=== PATIENT | female | born 1975 | race Caucasian/White ===

== ENCOUNTER → 2017-12-18 16:56 | Outpatient (CLI) | payer OTHER, SELFPAY ==
[2017-12-18 19:59] LABS: Amphetamine/Metha Screen,Urine Negative ng/mL (<1000); Barbiturates Screen,Urine Negative ng/mL (<200); Benzodiazepines Screen,Urine Negative ng/mL (200); Cannabinoid Screen,Urine Negative ng/mL (<50); Cocaine Screen,Urine Negative ng/g (<300); Methadone Screen,Urine Negative ng/mL (<300); Opiate Screen,Urine Negative ng/mL (<300); Phencyclidine Screen,Urine Negative ng/mL (<25)
== END ==
PROVIDERS: Visit Provider Nurse Practitioner Family
DX: Z79.899 Other long term (current) drug therapy (principal); R68.89 Other general symptoms and signs
CPT/HCPCS: 80305

== ENCOUNTER → 2017-12-20 08:03 | Outpatient (CLI) | payer OTHER, SELFPAY ==
[2017-12-20 08:37] LABS: Basophils # 0.1 K/mm3 (0-0.2); Basophils % 0.7 % (0.1-2.0); Eosinophils # 0.3 K/mm3 (0.0-0.4); Eosinophils % 3.6 % (0.1-12.0); Hematocrit 45.6 % (37.0-47.0); Hemoglobin 14.8 g/dL (12.2-16.2); Lymphocytes # 1.4 K/mm3 (0.7-4.5); Lymphocytes % 18.2 K/mm3 (10-50); Mean Corpuscular HGB Conc 32.4 g/dL (31.8-35.4); Mean Corpuscular Hemoglobin 29.7 pg (27.0-31.2); Mean Corpuscular Volume 91.8 fl (81-99); Mean Platelet Volume 8.1 fl (7.4-10.4); Monocytes # 0.4 K/mm3 (0.1-1.0); Monocytes % 5.5 % (1.7-9.3); Neutrophils # 5.6 K/mm3 (1.8-7.8); Neutrophils % 72.1 % (37.0-80.0); Platelet Count 275 K/mm3 (142-424); Red Blood Count 4.96 M/mm3 (4.20-5.40); Red Cell Distribution Width 12.9 % (11.5-17.5); White Blood Count 7.8 K/mm3 (4.8-10.8)
[2017-12-20 09:00] LABS: Alanine Aminotransferase 21 U/L (12-78); Albumin/Globulin Ratio 1.1 (1.1-1.8); Alkaline Phosphatase 75 U/L (46-116); Anion Gap 9.5 mEq/L (5-15); Aspartate Amino Transferase 18 U/L (15-37); Bilirubin,Total 0.4 mg/dL (0.2-1.0); Blood Urea Nitrogen 9 mg/dL (7-18); Calcium 8.8 mg/dL (8.5-10.1); Carbon Dioxide 30 mmol/L (21.0-32.0); Chloride 105 mmol/L (98-107); Chol/HDL Ratio 3.6 (1-3.5); Cholesterol 166 mg/dL (140-200); Creatinine,Serum 0.75 mg/dL (0.55-1.02); Estimated Glomerular Filt Rate 84 ml/min (>60); GFR (African American) 102 ML/MIN (>60); Globulin 3.5 gm/dl (1.3-3.2); Glucose 97 mg/dL (74-106); HDL Cholesterol 46 mg/dL (29-89); LDL Cholesterol 98 mg/dL (0-130); Potassium 4.5 mmoL/L (3.5-5.1); Sodium 140 mmol/L (136-145); Thyroid Stimulating Hormone 1.89 uIU/ml (0.358-3.740); Total Protein,Serum 7.5 gm/dL (6.4-8.2); Triglycerides 110 mg/dL (30-200); VLDL Cholesterol 22 mg/dL (0-40)
[2017-12-21 18:39] LABS: Vitamin D 25 Hydroxy 17.3 ng/mL (30.0-100.0)
== END ==
PROVIDERS: Nurse Practitioner Family; Visit Provider Emergency Medicine
DX: R68.89 Other general symptoms and signs (principal); E66.9 Obesity, unspecified; Z79.899 Other long term (current) drug therapy
CPT/HCPCS: 36415; 80053; 80061; 82652; 84436; 84443; 85025

== ENCOUNTER → 2018-02-24 16:55 | Outpatient (CLI) | payer OTHER, SELFPAY ==
--- NOTE | 2018-02-24 17:01 | MM_ITS ---
MM Dig screening mamm BI w/CAD CAD Screening ORDERING PHYSICIAN : Yoko Cheng MD PATIENT AGE: 43 years GENDER: Female COMPARISON: Previous mammograms: January 10, 2017, November 2015, left mammogram and ultrasound July 2017 INDICATION: Routine screening. No hormones. No new complaints Maternal grandmother with breast cancer TECHNIQUE: Standard CC and MLO images were obtained. Additional axillary cc views & right nipple profile cc view R2 CAD reviewed. FINDINGS: Moderately dense breast bilaterally again seen. Decreased. Sensitivity mammography in breast of this character Fibroglandular tissue most evident retroareolar region and towards upper outer quadrant However overall architecture is stable since prior studies with no dominant mass nor suspicious calcifications. RIGHT BREAST:No significant change follow-up one year. LEFT BREAST:No significant new findings. Denser areas tissue retroareolar region appear stable Small nodular densities from likely small intramammary nodes at the deep axillary left breast similar to previous studies and can be followed IMPRESSION: No new findings of significant concern Follow-up one year recommended and encouraged Moderately dense breast pattern does somewhat decrease sensitivity of mammography BI-RADS Category: 2 Benign Finding(s) RECOMMENDED FOLLOW-UP: 1YR - 1 YEAR FOLLOW-UP (A letter has been sent to the patient regarding results of the study.)
== END ==
PROVIDERS: Family Provider Family Medicine; PCP Nurse Practitioner Family; Referring Provider Nurse Practitioner Family; Visit Provider Obstetrics & Gynecology
DX: Z12.31 Encounter for screening mammogram for malignant neoplasm of breast (principal)
CPT/HCPCS: 77067

== ENCOUNTER → 2018-06-07 12:34 | Outpatient (CLI) | payer OTHER, SELFPAY ==
[2018-06-07 14:32] LABS: Basophils # 0.1 K/mm3 (0-0.2); Basophils % 0.6 % (0.1-2.0); Eosinophils # 0.1 K/mm3 (0.0-0.4); Eosinophils % 1.1 % (0.1-12.0); Hematocrit 43.8 % (37.0-47.0); Hemoglobin 14.3 g/dL (12.2-16.2); Lymphocytes # 1.2 K/mm3 (0.7-4.5); Lymphocytes % 15.3 K/mm3 (10-50); Mean Corpuscular HGB Conc 32.7 g/dL (31.8-35.4); Mean Corpuscular Hemoglobin 29.7 pg (27.0-31.2); Mean Corpuscular Volume 90.7 fl (81-99); Mean Platelet Volume 8.5 fl (7.4-10.4); Monocytes # 0.3 K/mm3 (0.1-1.0); Neutrophils # 6.3 K/mm3 (1.8-7.8); Platelet Count 268 K/mm3 (142-424); Red Blood Count 4.83 M/mm3 (4.20-5.40); Red Cell Distribution Width 13.5 % (11.5-17.5); White Blood Count 7.9 K/mm3 (4.8-10.8)
[2018-06-07 15:26] LABS: Alanine Aminotransferase 22 U/L (12-78); Albumin Level 4.2 gm/dL (3.4-5.0); Albumin/Globulin Ratio 1.4 (1.1-1.8); Alkaline Phosphatase 82 U/L (46-116); Anion Gap 14.3 mEq/L (5-15); Aspartate Amino Transferase 16 U/L (15-37); Bilirubin,Total 0.6 mg/dL (0.2-1.0); Blood Urea Nitrogen 14 mg/dL (7-18); Calcium 8.7 mg/dL (8.5-10.1); Carbon Dioxide 25 mmol/L (21.0-32.0); Chloride 109 mmol/L (98-107); Creatinine,Serum 0.72 mg/dL (0.55-1.02); Estimated Glomerular Filt Rate 88 ml/min (>60); GFR (African American) 106 ML/MIN (>60); Glucose 88 mg/dL (74-106); Phosphorous 3.4 mg/dL (2.4-4.9); Potassium 4.3 mmoL/L (3.5-5.1); Sodium 144 mmol/L (136-145); Thyroid Stimulating Hormone 1.73 uIU/ml (0.358-3.740); Total Protein,Serum 7.2 gm/dL (6.4-8.2)
[2018-06-08 15:41] LABS: Magnesium 1.9 mg/dL (1.4-2.2)
[2018-06-09 05:26] LABS: Vitamin B12 405 pg/mL (232-1245)
[2018-06-11 07:46] LABS: Vitamin D 25 Hydroxy 26.5 ng/mL (30.0-100.0)
== END ==
PROVIDERS: PCP Family Medicine; Visit Provider Family Medicine
DX: R53.83 Other fatigue (principal); R20.0 Anesthesia of skin
CPT/HCPCS: 36415; 80053; 82607; 82652; 83735; 84100; 84443; 85025

== ENCOUNTER → 2018-09-11 15:38 | Outpatient (CLI) | payer OTHER, SELFPAY ==
[2018-09-13 14:01] LABS: Vitamin D 25 Hydroxy 20.2 ng/mL (30.0-100.0)
== END ==
PROVIDERS: Visit Provider Family Medicine
DX: E55.9 Vitamin D deficiency, unspecified (principal)
CPT/HCPCS: 36415; 82652

== ENCOUNTER → 2018-11-18 11:00 | Outpatient (CLI) | payer OTHER, SELFPAY | PROVIDERS: Visit Provider Nurse Practitioner Obstetrics & Gynecology | DX: R39.89 Other symptoms and signs involving the genitourinary system (principal) | CPT/HCPCS: 87086; 87088; 87186 ==

== ENCOUNTER → 2018-11-28 07:39 | Outpatient (CLI) | payer OTHER, SELFPAY | PROVIDERS: Visit Provider Family Medicine | DX: E55.9 Vitamin D deficiency, unspecified (principal) | CPT/HCPCS: 36415; 82652 ==

== ENCOUNTER → 2019-01-01 08:08 | Outpatient (POV) | payer OTHER, SELFPAY | PROVIDERS: Visit Provider Dentist | DX: Z00.00 Encounter for general adult medical examination without abnormal findings (principal) ==

== ENCOUNTER → 2019-03-30 17:01 | Outpatient (CLI) | payer OTHER, SELFPAY ==
--- NOTE | 2019-03-30 17:03 | MM_ITS ---
MM Dig screening mamm BI w/CAD CAD Screening COMPARISON: Digital mammograms with CAD 02/24/2018 and 01/18/2017 INDICATION: There is a history of breast cancer patient maternal grandmother diagnosed after menopause TECHNIQUE: Standard CC and MLO images were obtained. R2 CAD reviewed. FINDINGS: Moderate diffuse somewhat heterogenic fibroglandular densities are seen in both breast most prominent upper outer quadrants. There are couple benign-appearing calcination is in each breast. There are stable small nodular density axillary tail left breast likely a low-lying node. There is no suspicious lesion and there are no suspicious microcalcifications. IMPRESSION: Stable exam with no suspicious lesion seen BI-RADS Category: 2 Benign Finding(s) RECOMMENDED FOLLOW-UP: 1YR - 1 YEAR FOLLOW-UP (A letter has been sent to the patient regarding results of the study.)
== END ==
PROVIDERS: PCP Family Medicine; Visit Provider Nurse Practitioner Obstetrics & Gynecology
DX: Z12.31 Encounter for screening mammogram for malignant neoplasm of breast (principal)
CPT/HCPCS: 77067

== ENCOUNTER → 2019-04-30 07:58 | Outpatient (POV) | payer OTHER, SELFPAY | PROVIDERS: Visit Provider Dentist | DX: Z00.00 Encounter for general adult medical examination without abnormal findings (principal) ==

== ENCOUNTER → 2019-07-02 08:09 | Outpatient (POV) | payer OTHER, SELFPAY | PROVIDERS: Visit Provider Dentist | DX: Z00.00 Encounter for general adult medical examination without abnormal findings (principal) ==

== ENCOUNTER → 2019-08-06 08:06 | Outpatient (POV) | payer OTHER, SELFPAY | PROVIDERS: Visit Provider Dentist | DX: Z00.00 Encounter for general adult medical examination without abnormal findings (principal) ==

== ENCOUNTER → 2020-01-18 10:48 | Outpatient (POV) | payer OTHER, SELFPAY | PROVIDERS: PCP Family Medicine; Visit Provider Specialist | DX: R55 Syncope and collapse (principal) | CPT/HCPCS: 95816 ==

== ENCOUNTER → 2020-01-21 12:03 | Outpatient (CLI) | payer OTHER, SELFPAY ==
[2020-01-21 14:04] LABS: Magnesium 2.1 mg/dl (1.6-2.3)
[2020-01-21 14:34] LABS: Thyroid Stimulating Hormone 1.02 uIU/mL (0.465-4.68)
[2020-01-22 09:25] LABS: Vitamin D 25 Hydroxy 21.3 ng/mL (30.0-100.0)
== END ==
PROVIDERS: Visit Provider Family Medicine
DX: R55 Syncope and collapse (principal); E55.9 Vitamin D deficiency, unspecified
CPT/HCPCS: 36415; 82652; 83735; 84100; 84443

== ENCOUNTER → 2020-02-10 07:32 | Outpatient (CLI) | payer OTHER, SELFPAY ==
[2020-02-10 08:15] LABS: Chloride 104 mmol/L (98-107); Potassium 4.4 mmoL/L (3.5-5.1); Sodium 134 mmol/L (136-145)
[2020-02-10 08:18] LABS: Anion Gap 8.4 mEq/L (5-15); Blood Urea Nitrogen 11 mg/dl (7-17); Calcium 8.7 mg/dl (8.4-10.2); Carbon Dioxide 26 mmol/L (22.0-30.0); Chol/HDL Ratio 2.4 (1-3.5); Cholesterol 134 mg/dl (140-200); Estimated Glomerular Filt Rate 90 ml/min (>60); GFR (African American) 109 ML/MIN (>60); Glucose 94 mg/dl (74-100); HDL Cholesterol 57 mg/dl (40-60); Triglycerides 64 mg/dl (30-150); VLDL Cholesterol 13 mg/dL (0-40)
[2020-02-10 08:29] LABS: Direct LDL Cholesterol 86.13 mg/dL (100-129)
[2020-02-10 10:15] LABS: Hemoglobin A1C 4.7 % (4.0-6.0)
[2020-02-11 11:39] LABS: Vitamin B12 411 pg/mL (232-1245)
[2020-02-11 11:40] LABS: Vitamin D 25 Hydroxy 25.8 ng/mL (30.0-100.0)
== END ==
PROVIDERS: Visit Provider Family Medicine
DX: R73.9 Hyperglycemia, unspecified (principal); E55.9 Vitamin D deficiency, unspecified; R53.83 Other fatigue; Z13.220 Encounter for screening for lipoid disorders
CPT/HCPCS: 36415; 80048; 80061; 82607; 82652; 83036

== ENCOUNTER → 2020-03-23 13:39 | Outpatient (CLI) | payer OTHER, SELFPAY ==
--- NOTE | 2020-03-23 13:39 | US_ITS ---
PROCEDURE: US TRANSVAGINAL CLINICAL INDICATION: left side pain, rule out ovarian cyst COMPARISON: No exams were available for comparison FINDINGS: There is an IUD in place which appears to be in satisfactory position. Uterus has an otherwise unremarkable appearance. UTERUS: 9cm x 5cmx 4cm with a combined endometrial thickness of 3.9mm LEFT OVARY: [id number] with a volume of 24.6ml. RIGHT OVARY: [id number] with a volume of 3.5ml. There are bilateral ovarian follicles with a 18 mm left ovarian cyst noted. IMPRESSION: IUD in place, otherwise negative pelvic ultrasound Dictated by: Isaias Decker MD 03/23/2020 16:12 Electronically signed by Isaias Decker MD in [place] 03/23/2020 16:12
== END ==
PROVIDERS: PCP Family Medicine; Visit Provider Nurse Practitioner Obstetrics & Gynecology
DX: N83.209 Unspecified ovarian cyst, unspecified side (principal); R10.9 Unspecified abdominal pain
CPT/HCPCS: 76830

== ENCOUNTER → 2020-03-28 10:55 | Outpatient (CLI) | payer OTHER, SELFPAY | PROVIDERS: Visit Provider Family Medicine | DX: E55.9 Vitamin D deficiency, unspecified (principal) | CPT/HCPCS: 36415; 82306 ==

== ENCOUNTER → 2020-04-13 08:04 | Outpatient (CLI) | payer OTHER, SELFPAY ==
--- NOTE | 2020-04-13 08:04 | MM_ITS ---
PROCEDURE: MM DIG SCREENING MAMM BI W/CAD Digital Breast Tomosynthesis Included CLINICAL INDICATION: screening xmg There is a history of breast cancer patient's maternal grandmother. COMPARISON: [id number] DIG MAMM-DX UNI A/VWS-LT W/CAD from 08/08/2017 [facility] MM Dig screening mamm BI w/CAD from 02/24/2018 DIG MAMM-SCREEN MIKE from 03/30/2019 TECHNIQUE: Standard CC and MLO images and 3D Tomosynthesis was obtained. R2 CAD reviewed. FINDINGS: Moderate somewhat heterogenic fibroglandular densities are seen in both breast primarily upper outer quadrants. There are few benign-appearing microcalcifications in each breast. There are multiple small benign-appearing nodes in both axilla. There is no new or suspicious lesion in either breast and no suspicious microcalcifications. IMPRESSION: Moderate breast density with no suspicious lesions seen BI-RAD Category: 2 Benign Finding(s) FOLLOW-UP: 1YR 1 Year Follow-up (A letter has been sent to the patient regarding results of the study.) Dictated by: Dr. Robert Peters MD 04/16/2020 10:[address] Robert Peters MD in [place] 04/16/2020 10:12
== END ==
PROVIDERS: PCP Family Medicine; Visit Provider Nurse Practitioner Obstetrics & Gynecology
DX: Z12.31 Encounter for screening mammogram for malignant neoplasm of breast (principal)
CPT/HCPCS: 77063; 77067

== ENCOUNTER → 2020-06-29 14:40 | Outpatient (CLI) | payer OTHER, SELFPAY ==
[2020-06-29 16:25] LABS: 25-OH Vitamin D, Total 34.5 ng/mL (30-100)
== END ==
PROVIDERS: Visit Provider Family Medicine
DX: E55.9 Vitamin D deficiency, unspecified (principal)
CPT/HCPCS: 36415; 82306

== ENCOUNTER → 2020-11-29 16:16 | Outpatient (CLI) | payer OTHER, SELFPAY ==
[2020-11-29 18:10] LABS: 25-OH Vitamin D, Total 19.1 ng/mL (30-100)
== END ==
PROVIDERS: Visit Provider Family Medicine
DX: E55.9 Vitamin D deficiency, unspecified (principal)
CPT/HCPCS: 36415; 82306

== ENCOUNTER → 2021-01-24 10:00 | Outpatient (CLI) | payer OTHER, SELFPAY ==
[2021-01-24 11:29] LABS: 25-OH Vitamin D, Total 27.1 ng/mL (30-100)
== END ==
PROVIDERS: Visit Provider Family Medicine
DX: E55.9 Vitamin D deficiency, unspecified (principal)
CPT/HCPCS: 36415; 82306

== ENCOUNTER → 2021-05-17 07:50 | Outpatient (CLI) | payer OTHER, SELFPAY ==
--- NOTE | 2021-05-17 07:51 | MM_ITS ---
PROCEDURE: MM DIG SCREENING MAMM BI W/CAD Digital Breast Tomosynthesis Included CLINICAL INDICATION: screening xmg COMPARISON: MG [facility] MM Dig screening mamm BI w/CAD from 02/24/2018 MG DIG MAMM-SCREEN MIKE from 03/30/2019 MG MM DIG SCREENING MAMM BI W/CAD from 04/13/2020 TECHNIQUE: Standard CC and MLO images and 3D Tomosynthesis was obtained. R2 CAD reviewed. FINDINGS: Heterogeneously dense fibroglandular tissue. There is a new nodule/cluster of nodules in the lower inner right breast measuring 6 mm. Nodular density also noted in the outer aspect of the right breast slightly more prominent. Recommend spot-compression views straight mL view rolled CC view and right breast ultrasound. Asymmetric fibroglandular tissue is present in the medial aspect of the left breast and is stable. No suspicious abnormalities. IMPRESSION: New nodule in the right breast with slight increase in a pre-existing nodule. Additional imaging suggested. Unremarkable left breast BI-RAD Category: 0 Need Additional Imaging Evaluation FOLLOW-UP: IMM Immediate Follow-up Recommended (A letter has been sent to the patient regarding results of the study.) Dictated by: Isaias Decker MD 05/22/2021 13:21 Isaias Decker MD in [place] 05/22/2021 13:21
== END ==
PROVIDERS: PCP Family Medicine; Visit Provider Nurse Practitioner Obstetrics & Gynecology
DX: Z12.31 Encounter for screening mammogram for malignant neoplasm of breast (principal)
CPT/HCPCS: 77063; 77067

== ENCOUNTER → 2021-05-24 14:23 | Outpatient (CLI) | payer OTHER, SELFPAY ==
--- NOTE | 2021-05-24 14:24 | MM_ITS ---
PROCEDURE: MM DIG MAMM DX UNILAT RT CAD Digital Breast Tomosynthesis Included Right breast ultrasound with axilla CLINICAL INDICATION: Dx RT Mamm-abnormal Mammogram COMPARISON: MG DIG MAMM-SCREEN MIKE from 03/30/2019 MG MM DIG SCREENING MAMM BI W/CAD from 04/13/2020 MG MM DIG SCREENING MAMM BI W/CAD from 05/17/2021 US US BREAST RT COMPLETE from 05/24/2021 TECHNIQUE: Standard CC and MLO images and 3D Tomosynthesis was obtained. R2 CAD reviewed. FINDINGS: The breasts are heterogeneously dense which may obscure small masses. Benign-appearing nodule or cluster of nodules lateral right breast at 6 by 4 mm. Benign-appearing nodule or cluster of nodules medial aspect right breast posterior 1/3 at 7 by 5 mm. Nodules are well-circumscribed without calcifications. Right breast ultrasound complete with axilla at 12 o'clock near the nipple there is a 7 by 4 mm septated cyst. At 5 o'clock there is a 5 x 5 mm septated cyst which may correspond to the new mammographic abnormality. At 7 o'clock there is a 6 by 5 mm septated cyst which may correspond to the mammographic abnormality in the outer right breast. No suspicious nodules are evident. At 10 o'clock there is a 6 mm cyst. IMPRESSION: Benign-appearing cyst. The new nodule in the medial right breast likely corresponds to a complicated cyst. Probably benign. Suggest 6 month mammographic and sonographic follow-up BI-RAD Category: 3 Probably Benign Finding Short Term Follow-Up FOLLOW-UP: 6M 6 Month Follow-up (A letter has been sent to the patient regarding results of the study.) Dictated by: Isaias Decker MD 05/31/2021 15:01 Isaias Decker MD in [place] 05/31/2021 15:01
== END ==
PROVIDERS: PCP Family Medicine; Visit Provider Nurse Practitioner Obstetrics & Gynecology
DX: R92.8 Other abnormal and inconclusive findings on diagnostic imaging of breast (principal)
CPT/HCPCS: 76641; 77061; 77065; G0279

== ENCOUNTER → 2021-05-25 07:30 | Outpatient (CLI) | payer OTHER, SELFPAY ==
[2021-05-25 07:55] LABS: Basophils % 0.5 % (0.1-2.0); Eosinophils # 0.3 K/mm3 (0.0-0.4); Eosinophils % 3.8 % (0.1-12.0); Hemoglobin 14.4 g/dL (12.2-16.2); Lymphocytes # 1.6 K/mm3 (0.7-4.5); Lymphocytes % 21.1 % (10-50); Mean Corpuscular HGB Conc 32.1 g/dL (31.8-35.4); Mean Corpuscular Hemoglobin 29.6 pg (27.0-31.2); Mean Corpuscular Volume 92.5 fl (81-99); Mean Platelet Volume 8.8 fl (7.4-10.4); Monocytes # 0.4 K/mm3 (0.1-1.0); Monocytes % 4.8 % (1.7-9.3); Neutrophils # 5.1 K/mm3 (1.8-7.8); Neutrophils % 69.7 % (37.0-80.0); Platelet Count 264 K/mm3 (142-424); Red Blood Count 4.87 M/mm3 (4.20-5.40); Red Cell Distribution Width 13.5 % (11.5-17.5); White Blood Count 7.4 K/mm3 (4.8-10.8)
[2021-05-25 08:30] LABS: Alanine Aminotransferase 70 U/L (12-78); Albumin Level 3.9 g/dl (3.5-5.0); Albumin/Globulin Ratio 1.4 (1.1-1.8); Alkaline Phosphatase 68 U/L (38-126); Anion Gap 10.7 mEq/L (5-15); Aspartate Amino Transferase 135 U/L (14-36); Bilirubin,Total 0.8 mg/dl (0.2-1.3); Blood Urea Nitrogen 13 mg/dl (7-17); Carbon Dioxide 29 mmol/L (22.0-30.0); Chloride 102 mmol/L (98-107); Chol/HDL Ratio 3.4 (1-3.5); Cholesterol 181 mg/dl (140-200); Estimated Glomerular Filt Rate 77 ml/min (>60); GFR (African American) 93 ML/MIN (>60); Globulin 2.8 g/dL (1.3-3.2); Glucose 92 mg/dl (74-100); HDL Cholesterol 54 mg/dl (40-60); Potassium 4.7 mmoL/L (3.5-5.1); Sodium 137 mmol/L (136-145); Total Protein,Serum 6.7 g/dl (6.3-8.2); Triglycerides 81 mg/dl (30-150); VLDL Cholesterol 16 mg/dL (0-40)
[2021-05-25 08:40] LABS: Direct LDL Cholesterol 104.48 mg/dL (100-129)
[2021-05-25 08:46] LABS: 25-OH Vitamin D, Total 31.9 ng/mL (30-100)
== END ==
PROVIDERS: Visit Provider Nurse Practitioner Obstetrics & Gynecology
DX: Z01.419 Encounter for gynecological examination (general) (routine) without abnormal findings (principal); E55.9 Vitamin D deficiency, unspecified
CPT/HCPCS: 36415; 80053; 80061; 82306; 85025

== ENCOUNTER → 2021-07-19 10:47 | Outpatient (CLI) | payer OTHER, SELFPAY ==
[2021-07-19 12:37] LABS: Alanine Aminotransferase 16 U/L (12-78); Albumin Level 3.9 g/dl (3.5-5.0); Alkaline Phosphatase 60 U/L (38-126); Aspartate Amino Transferase 28 U/L (14-36); Bilirubin,Direct 0.5 mg/dl (0.0-0.4); Bilirubin,Total 0.5 mg/dl (0.2-1.3); Total Protein,Serum 6.5 g/dl (6.3-8.2)
[2021-07-27 22:07] LABS: 1,25 Dihydroxy Vitamin D 19 pg/mL (.); 1,25-Dihydroxy, Vitamin D-2 <10 pg/mL (.); 1,25-Dihydroxy, Vitamin D-3 17 pg/mL (.)
== END ==
PROVIDERS: Visit Provider Nurse Practitioner Obstetrics & Gynecology
DX: E55.9 Vitamin D deficiency, unspecified (principal); R53.82 Chronic fatigue, unspecified
CPT/HCPCS: 36415; 80076; 82652

== ENCOUNTER → 2021-12-01 14:24 | Outpatient (CLI) | payer OTHER, SELFPAY ==
--- NOTE | 2021-12-01 14:24 | US_ITS ---
PROCEDURE INFORMATION: Exam: US Right Breast, Complete MG Right Diagnostic Breast Tomosynthesis Exam date and time: 12/01/2021 2:24 PM Age: 46 years old Clinical indication: Six-month follow-up for probably benign cystic changes, 05/24/2021. TECHNIQUE: Imaging protocol: Complete ultrasound of all four quadrants of the Right breast and the retroareolar regions, including ultrasound of the axilla when performed. Right Diagnostic tomosynthesis and 2D mammography including computer-aided detection (CAD) when performed. Unilateral or bilateral exam. COMPARISON: 1. MG MM DIG MAMM DX UNILAT RT CAD 05/24/2021 2:20 PM 2. MG MM DIG SCREENING MAMM BI W/CAD 05/17/2021 7:54 AM 3. MG MM DIG SCREENING MAMM BI W/CAD 04/13/2020 8:04 AM 4. MG DIG MAMM-SCREEN MIKE 03/30/2019 5:07 PM FINDINGS: MAMMOGRAPHY: The breast tissue is heterogeneously dense, which may obscure small masses. Scattered sub cm circumscribed masses. No suspicious mass. No suspicious calcifications. No asymmetry or architectural distortion. Unremarkable axilla. ULTRASOUND: Bilateral sonography, all 4 quadrants, retroareolar and axilla. Scattered benign-appearing sub cm cysts, at 12 o'clock 2 cm from the nipple measuring 0.4 cm, with minimal new low-level internal echoes, but smaller than on 05/24/2021 when it measured 0.8 cm. At 5 o'clock 5 cm from the nipple, measuring 0.5 x 0.5 by 0.5 cm, unchanged from 05/24/2021 when it measured 0.4 x 0.5 x 0.5 cm. At 7 o'clock 3 cm from the nipple, measuring 0.6 x 0.5 by 0.7 cm, unchanged from 05/24/2021 when it measured 0.5 by 0.6 x 0.6 cm. At 10 o'clock 7 cm from the nipple measuring 0.6 x 0.7 x 0.3 cm, unchanged from 05/24/2021 when it measured 0.6 x 0.6 x 0.3 cm. At 10 o'clock 4 cm from the nipple measuring 0.6 x 0.3 by 0.3 cm which measured 0.5 x 0.3 cm on 05/24/2021. No suspicious cystic or solid masses demonstrated. Sonographically unremarkable left axillary lymph node. IMPRESSION: Benign-appearing scattered cystic changes. Annual screening mammogram recommended, due May 2021, unless otherwise clinically indicated. ASSESSMENT: BI-RADS Category 2: Benign
== END ==
PROVIDERS: PCP Family Medicine; Visit Provider Nurse Practitioner Obstetrics & Gynecology
DX: R92.8 Other abnormal and inconclusive findings on diagnostic imaging of breast (principal)
CPT/HCPCS: 76641; 77061; 77065; G0279

== ENCOUNTER → 2022-04-19 16:51 | Outpatient (CLI) | payer OTHER, SELFPAY ==
--- NOTE | 2022-04-19 17:03 | ECG_ITS ---
APPROVED REPORT Exam: Resting ECG HR:75 bpm ECG Measurements Heart Rate 75 AXES VA 143 P 47 QRSd 94 QRS 85 QT 366 T 60 QTc 395 Conclusion SINUS RHYTHM WITH FREQUENT VENTRICULAR PREMATURE COMPLEXES IN A BIGEMINAL PATTERN ABNORMAL RHYTHM ECG UNCONFIRMED REPORT Electronically signed by : Flornetino Salazar MD 04/19/2022 21:04:17
== END ==
PROVIDERS: PCP Family Medicine; Visit Provider Family Medicine
DX: R00.1 Bradycardia, unspecified (principal)
CPT/HCPCS: 93005

== ENCOUNTER → 2022-04-21 09:07 | Outpatient (CLI) | payer OTHER, SELFPAY ==
[2022-04-21 09:39] LABS: Anion Gap 11.3 mEq/L (5-15); Blood Urea Nitrogen 19 mg/dl (7-17); Calcium 9.4 mg/dl (8.4-10.2); Carbon Dioxide 29 mmol/L (22.0-30.0); Chloride 104 mmol/L (98-107); Estimated Glomerular Filt Rate 67 ml/min (>60); GFR (African American) 81 ML/MIN (>60); Glucose 94 mg/dl (74-100); Potassium 4.3 mmoL/L (3.5-5.1); Sodium 140 mmol/L (136-145)
[2022-04-21 09:54] LABS: Troponin I < 0.01 ng/ml (0.00-0.034)
[2022-04-21 10:10] LABS: Thyroid Stimulating Hormone 1.62 uIU/mL (0.465-4.68)
== END ==
PROVIDERS: PCP Family Medicine; Visit Provider Family Medicine
DX: R00.1 Bradycardia, unspecified (principal)
CPT/HCPCS: 36415; 80048; 83735; 84443; 84484; 93225; 93226

== ENCOUNTER → 2022-04-24 07:02 | Outpatient (CLI) | payer OTHER, SELFPAY ==
--- NOTE | 2022-04-24 07:05 | CA_ITS ---
APPROVED REPORT EXAM: Comprehensive 2D, Doppler, and color-flow Echocardiogram Clinical Faculty: Merry Baxter RVT Ht: 5 ft 5 in Wt: 202lbs BSA: 1.99 BP: 110/70 mmHg Indications: BIGEMINY,BRADYCARDIA 2D Dimensions LVOT 1.95 cm (M/F) 1.5-2.5 LA Volume 21.80 mL LA Volume Index 11.01 mL/m2 (M/F) 16-34 M-Mode Dimensions RVDd 2.54 cm (0.9-2.6) LA Diam 3.33 cm (1.9-4.0) LVDd 4.67 cm (3.5-5.7) Ao Diam 2.46 cm (2.0-3.7) LVDs 2.66 cm (3.5-5.7) IVSd 0.72 cm (0.6-1.1) PWd 0.52 cm (0.6-1.1) EF (Teich) 74.20% FS 43.00% EDV (Teich) 100.80 mL TAPSE 2.66 (<1.7) ESV (Teich) 26.00 mL LV Diastology MED E' 7.30 (< 7 cm/sec) LAT E' 12.70 (<10 cm/sec) Aortic Valve AO Peak GR. 7.00 mmHg Pulmonary Valve PV Peak Velocity 94.00 (50-150 cm/s) Tricuspid Valve TR P. Velocity 161.00 cm/s RAP Estimate 10.00 mmHg RVSP 20.40 mmHg Left Ventricle Left atrium normal size left ventricle is normal size, there is no concentric left ventricular hypertrophy, estimated ejection fraction 55% with no regional wall motion abnormality, diastolic parameters are within normal range. Right Ventricle Right atrium and right ventricle are normal size and contractility. Aortic Valve Aortic valve is grossly normal there is no aortic stenosis or aortic insufficiency. Mitral Valve Mitral valve is grossly normal, there is no mitral stenosis or mitral regurgitation. Tricuspid Valve Tricuspid valve grossly normal, there is no significant tricuspid regurgitation. Pulmonic Valve Pulmonic valve is poorly visualized. Great Vessels Aortic root is normal size. Inferior vena cava is normal size with normal inspiratory collapse. Pericardium No significant pericardial effusion. Conclusion 1. Normal left ventricular size preserved left ventricular systolic function, estimated ejection fraction 55% with no regional wall motion abnormality, diastolic parameters are within normal range. 2. No significant pericardial effusion- 3. Inferior vena cava normal size with no respiratory collapse. Electronically signed by : Jose Carter MD 04/25/2022 06:17:21
== END ==
PROVIDERS: PCP Family Medicine; Visit Provider Family Medicine
DX: R00.1 Bradycardia, unspecified (principal)
CPT/HCPCS: 93225; 93226; 93306

== ENCOUNTER → 2022-04-27 06:48 | Outpatient (CLI) | payer OTHER, SELFPAY ==
--- NOTE | 2022-04-27 06:48 | CA_ITS ---
APPROVED REPORT Exam: Exercise Treadmill Technologist: Mindy Ervin, Ht: 5 ft 5 in Wt: 202 lbs BSA: 1.99 m2 HR: 62 bpm BP: 100/38 mmHg Medical History Medications: BisOPROLOL Fumarate,,,,, Stress Test Details Test: Manual Treadmill HR Resting HR: 68 bpm Max Heart Rate (APMHR): 172.520764 bpm Max HR Achieved: 144 bpm Target HR (85% APMHR): 146.359673 bpm % of APMHR: 83.72 Recovery HR: 77 bpm BP Resting BP: 113/56 mmHg Max BP: 139/66 mmHg Recovery BP: 100.0/44.0 mmHg ECG Resting ECG: SR with ventricular bigeminy Clinical Exercise duration: 10:31 min Highest Stage Achieved: Exercise capacity: 12.5 METs Stress ECG Conclusion Max HR: 144 Symptoms: SOA, arm leg fatigue, no chest pain. Arrhythmias/Ectopy: Ventricular bigeminy. Multiple PVCs. ST-T Changes: <1.5mm ST Segment changes. Test Summary Stage 4 . . . . . . . . REST . . . . . . . Standing REST 04:58 0.0 0.0 68 . 113/ 56 . . Stage 1 01:00 10.0 1.7 89 . . . . Stage 1 02:00 10.0 1.7 102 . . . . Stage 1 03:00 10.0 1.7 103 . 110/ 68 . . Stage 2 01:00 12.0 2.5 108 . . . . Stage 2 02:00 12.0 2.5 108 . . . . Stage 2 03:00 12.0 2.5 114 . . . . Stage 3 01:00 14.0 3.4 115 . . . . Stage 3 02:00 14.0 3.4 115 . . . . Stage 3 03:00 14.0 3.4 120 . 130/ 80 . . Stage 4 . . . . . . . Protocol changed to Manual Treadmill Stage 4 01:00 16.0 4.0 136 . . . . Stage 4 01:31 16.0 4.0 142 . . . Stop exercise at 10:31 RECOVERY 01:00 0.0 0.0 124 . . . . RECOVERY 02:00 0.0 0.0 89 . . . . RECOVERY 03:00 0.0 0.0 77 . . . . RECOVERY 04:00 0.0 0.0 74 . 139/ 66 . . RECOVERY 05:00 0.0 0.0 73 . 139/ 66 . . RECOVERY 05:20 0.0 0.0 79 . 100/ 44 . . Electronically signed by : Jose Carter MD 04/27/2022 11:41:02
--- NOTE | 2022-04-27 06:48 | NM_ITS ---
APPROVED REPORT Exam: Nuclear Stress Test Indication: FM HX, C.P., SOB, PALPITATIONS, FATIGUE, ABN EKG Patient Location: Outpatient Stress Tech: Mindy Beaver [place] Tech:Niya Mccarty, RAUL RT (R)(N)(M) Ht: 5 ft 5 in Wt: 197 lbs Bra Size: 38C BP: 100/38 mmHg BSA: 1.97 m2 TID: 1.43 BMI: 32.7 History: FM HX, C.P., SOB, PALPITATIONS, FATIGUE, ABN EKG Procedure: Patient exercised on Reid protocol 10:31 minutes and sec, resting heart rate 62 bpm, resting blood pressure 100/38 mmHg, with exercise maximum heart rate achived was 144 bpm which is 84 % of the maximum predicted heart rate and blood pressure was 130/80 mmHg. Test was stopped due to LEG FATIGUE. Patient denied any complaint of chest pain. Patient has good exercise capacity, achieved 12.5 METs of workload on treadmill, the blood pressure response to exercise was Adequate. Electrocardiogram Resting electrocardiogram shows sinus rhythm, with exercise there is less than 1.[address] segment depression noted from the baseline EKG. The EKG portion of the exercise Myoview is nondiagnostic as patient did not achieve the target heart rate. Cardiac Stress and Resting SPECT Images: Cardiac Stress and Resting SPECT images were obtained using technetium 99m Myoview 32.2 mCi stress and 10.38 mCi at rest. Gated SPECT analysis of segmental wall motion and calculation of the ejection fraction also done. Prone images were also obtained. Cardiac stress and rest SPECT images show uniform myocardial activity without segmental perfusion abnormality, computer derived ejection fraction is 49% with no regional wall motion abnormality, right ventricle is normal size and contractility. Conclusion: 1. The EKG portion of the exercise Myoview is nondiagnostic as patient did not achieve the target heart rate, patient has good exercise capacity achieved 12.5 METS of workload on treadmill, the blood pressure response to exercise was adequate, there was no exercise-induced chest discomfort. 2. No scintigraphic evidence of reversible ischemia seen at this level of exercise, compared to ejection fraction is 49% with no regional wall motion abnormality, right ventricle is normal size and contractility. Electronically signed by : Jose Carter MD 04/27/2022 11:44:37
== END ==
PROVIDERS: PCP Family Medicine; Visit Provider Physician Assistant
DX: R06.09 Other forms of dyspnea (principal); R07.89 Other chest pain; I49.1 Atrial premature depolarization; I49.3 Ventricular premature depolarization; R94.31 Abnormal electrocardiogram [ECG] [EKG]
CPT/HCPCS: 78452; 93017; A9502

== ENCOUNTER → 2022-04-30 10:29 | Outpatient (CLI) | payer OTHER, SELFPAY ==
[2022-04-30 11:23] LABS: Basophils # 0.1 K/mm3 (0-0.2); Basophils % 0.7 % (0.1-2.0); Eosinophils # 0.1 K/mm3 (0.0-0.4); Hemoglobin 14.2 g/dL (12.2-16.2); Lymphocytes # 1.4 K/mm3 (0.7-4.5); Lymphocytes % 15.9 % (10-50); Mean Corpuscular HGB Conc 31.5 g/dL (31.8-35.4); Mean Corpuscular Hemoglobin 29.5 pg (27.0-31.2); Mean Corpuscular Volume 93.6 fl (81-99); Mean Platelet Volume 9.3 fl (7.4-10.4); Monocytes # 0.5 K/mm3 (0.1-1.0); Monocytes % 5.8 % (1.7-9.3); Neutrophils # 6.6 K/mm3 (1.8-7.8); Neutrophils % 76.6 % (37.0-80.0); Platelet Count 248 K/mm3 (142-424); Red Blood Count 4.81 M/mm3 (4.20-5.40); Red Cell Distribution Width 14.6 % (11.5-17.5); White Blood Count 8.6 K/mm3 (4.8-10.8)
[2022-04-30 11:44] LABS: Anion Gap 13.6 mEq/L (5-15); Blood Urea Nitrogen 19 mg/dl (7-17); Calcium 9.3 mg/dl (8.4-10.2); Carbon Dioxide 26 mmol/L (22.0-30.0); Chloride 104 mmol/L (98-107); Estimated Glomerular Filt Rate 77 ml/min (>60); GFR (African American) 93 ML/MIN (>60); Glucose 105 mg/dl (74-100); Potassium 4.6 mmoL/L (3.5-5.1); Sodium 139 mmol/L (136-145)
== END ==
PROVIDERS: Internal Medicine; PCP Family Medicine; Visit Provider Physician Assistant
DX: Z01.812 Encounter for preprocedural laboratory examination (principal); Z20.822 Contact with and (suspected) exposure to COVID-19; I20.8 Other forms of angina pectoris; Z82.49 Family history of ischemic heart disease and other diseases of the circulatory system
CPT/HCPCS: 36415; 80048; 85025; C9803; U0003; U0005

== ENCOUNTER 2022-05-01 07:49 | Day surgery (SDC) | payer OTHER, SELFPAY ==
[2022-05-01] VITALS (11 sets, daily range): BP systolic 96–146; BP diastolic 45–58; PULSE 58–72; RESP 14–18; O2SAT 94–99; BMI 33.1
--- NOTE | 2022-05-01 | IR_ITS ---
APPROVED REPORT Patient Location: Outpatient Substation Technician: RAUL Monge RT (R) PROCEDURES Left heart catheterization Left ventriculogram Selective coronary angiogram INDICATION New onset ventricular arrhythmia, New onset left ventricular dysfunction Informed consent was obtained prior to the procedure. COMPLICATIONS None Estimated Blood Loss: Less than 10 mls TECHNIQUE One percent lidocaine used to anesthetize the right anterior aspect of the wrist. The right radial artery was accessed via the Seldinger technique. A 6 Georgian sheath was placed in the right radial artery. 2.5 mg of verapamil, 800 mcg of nitroglycerin, 1mg Lidocaine and 5000 U Heparin were given through the arterial sheath. The papa catheter was also used to perform left heart catheterization, left ventriculogram and selective coronary angiogram. At the end of the procedure the sheath was removed good hemostasis was achieved using Traclet band, patient was transferred to the postop holding area in stable condition. ANGIOGRAPHIC RESULTS The left main artery Normal The left anterior descending artery Large normal The circumflex artery Large dominant with mid vessel smooth 10% stenosis The right coronary artery Nondominant normal The OGDEN ventriculogram reveals Reduced at 40 to 45% The left ventricular end-diastolic pressure 15 mmHg IMPRESSION Mild nonflow limiting coronary disease Reduced ejection fraction likely secondary to multiple PVCs Borderline elevated LVEDP PLAN 1. Referral to EP for consideration of ventricular ectopy ablation Electronically signed by : Charanjit Meeks MD 05/01/2022 10:24:59
[2022-05-01 08:09] LABS: HCG Qualitative, Serum Negative (Negative)
== END 2022-05-01 13:20 | disposition home or self-care (01) ==
LOC: CATHLAB 07:50
PROVIDERS: PCP Family Medicine; Visit Provider Internal Medicine
DX: I25.118 Atherosclerotic heart disease of native coronary artery with other forms of angina pectoris (principal); Z82.49 Family history of ischemic heart disease and other diseases of the circulatory system; I49.3 Ventricular premature depolarization; R06.9 Unspecified abnormalities of breathing; I49.1 Atrial premature depolarization; R94.39 Abnormal result of other cardiovascular function study
CPT/HCPCS: 84703; 93458; 99152; C1725; C1769; J1644; Q9967

== ENCOUNTER → 2022-05-09 07:42 | Outpatient (CLI) | payer OTHER, SELFPAY | PROVIDERS: PCP Family Medicine; Visit Provider Physician Assistant | DX: G47.33 Obstructive sleep apnea (adult) (pediatric) (principal); R06.83 Snoring; R40.0 Somnolence | CPT/HCPCS: 95806 ==

== ENCOUNTER → 2022-05-11 18:24 | Outpatient (CLI) | payer OTHER, SELFPAY ==
--- NOTE | 2022-05-11 18:35 | ECG_ITS ---
APPROVED REPORT Exam: Resting ECG HR:68 bpm ECG Measurements Heart Rate 68 AXES [place] 147 P 55 QRSd 98 QRS 72 QT 400 T 53 QTc 418 Conclusion SINUS RHYTHM WITH FREQUENT VENTRICULAR PREMATURE COMPLEXES LOW QRS VOLTAGE IN PRECORDIAL LEADS [QRS DEFLECTION < 1.0 mV IN CHEST LEADS] ABNORMAL RHYTHM ECG UNCONFIRMED REPORT Electronically signed by : Florentino Salazar MD 05/13/2022 09:14:13
== END ==
PROVIDERS: PCP Family Medicine; Visit Provider Physician Assistant
DX: I49.3 Ventricular premature depolarization (principal); R00.2 Palpitations; Z79.899 Other long term (current) drug therapy
CPT/HCPCS: 93005

== ENCOUNTER → 2022-06-15 14:50 | Outpatient (CLI) | payer OTHER, SELFPAY ==
--- NOTE | 2022-06-15 14:50 | MM_ITS ---
PROCEDURE INFORMATION: Exam: US Right Breast, Complete MG Bilateral Screening 3D Mammography Exam date and time: 06/15/2022 2:46 PM Age: 47 years old Clinical indication: Screening examination; Abnormal findings on imaging; Right; Additional info: Routine screening mammogram due and US RT breast TECHNIQUE: Imaging protocol: Complete ultrasound of all four quadrants of the Right breast and the retroareolar regions, including ultrasound of the axilla when performed. Bilateral Screening tomosynthesis and 2D mammography including computer-aided detection (CAD) when performed. COMPARISON: 1. MG MM DIG MAMM DX UNILAT RT CAD 12/01/2021 2:25 PM 2. MG MM DIG MAMM DX UNILAT RT CAD 05/24/2021 2:20 PM 3. MG MM DIG SCREENING MAMM BI W/CAD 05/17/2021 7:54 AM 4. MG MM DIG SCREENING MAMM BI W/CAD 04/13/2020 8:04 AM Ultrasound 05/24/2021 and 12/01/2021 FINDINGS: MAMMOGRAPHY: The breast is heterogeneously dense, which may obscure small masses. Stable benign-appearing subcentimeter nodules are present in the right breast. No new mass, architectural distortion, or suspicious calcifications have developed to suggest malignancy. No axillary adenopathy. ULTRASOUND: Ultrasound assessment of the right breast including all 4 quadrants, axilla and retroareolar breast was performed Hypoechoic complicated cystic structures are present, morphologically similar to 1 another and not significantly changed given the difference in measuring technique as follows: 0.5 x 0.7 x 0.3 cm right 12 o'clock compared with 0.4 x 0.8 x 0.4 cm on 05/24/2021 0.5 x 0.5 x 0.6 cm along the 5 o'clock axis compared with 0.4 x 0.5 x 0.5 cm. 0.6 x 0.6 x 0.6 cm right 7 o'clock, compared with 0.6 x 0.6 x 0.6 cm on 05/24/2021 0.6 x 0.7 x 0.3 cm right 10 o'clock axis compared with 0.6 x 0.6 x 0.3 cm on 05/24/2021 No new or morphologically suspicious solid/cystic mass has developed No architectural distortion or shadowing is present IMPRESSION: Continued sonographic surveillance is recommended in 6 months to assess stability of morphologically similar appearing subcentimeter cystic structures described in detail above No mammographic evidence of malignancy. Annual screening mammogram is recommended unless otherwise clinically indicated. ASSESSMENT: Screening mammogram BIRADS: BI-RADS category 2: Benign Overall BIRADS: BI-RADS category 3: Probably benign
== END ==
PROVIDERS: PCP Family Medicine; Visit Provider Nurse Practitioner Obstetrics & Gynecology
DX: R92.8 Other abnormal and inconclusive findings on diagnostic imaging of breast (principal); Z12.31 Encounter for screening mammogram for malignant neoplasm of breast
CPT/HCPCS: 76641; 77063; 77067

== ENCOUNTER → 2022-06-25 12:17 | Outpatient (CLI) | payer OTHER, SELFPAY ==
--- NOTE | 2022-06-25 12:20 | XR_ITS ---
FINAL REPORT CLINICAL HISTORY: dyspnea x's several months FINDINGS: Two views of the chest were obtained. The heart size and pulmonary vascularity are within normal limits. The mediastinum is normal. No acute pulmonary abnormality is identified. There is no pneumothorax. The bony thorax is intact. IMPRESSION: No active cardiopulmonary disease. Reviewed, Interpreted and Dictated by Coleman Rogers III, MD Transcribed by Angelique Torres Authenticated and [facility]
== END ==
PROVIDERS: PCP Family Medicine; Visit Provider Physician Assistant
DX: R06.09 Other forms of dyspnea (principal)
CPT/HCPCS: 71046

== ENCOUNTER → 2022-06-30 10:46 | Outpatient (CLI) | payer OTHER, SELFPAY ==
--- NOTE | 2022-06-30 10:54 | ECG_ITS ---
APPROVED REPORT Exam: Resting ECG HR:50 bpm ECG Measurements Heart Rate 50 AXES MO 174 P 59 QRSd 99 QRS 88 QT 449 T 74 QTc 423 Conclusion SINUS BRADYCARDIA WITH SINUS ARRHYTHMIA BORDERLINE ECG UNCONFIRMED REPORT Electronically signed by : Florentino Salazar MD 06/30/2022 17:37:33
== END ==
PROVIDERS: PCP Family Medicine; Visit Provider Physician Assistant
DX: I49.3 Ventricular premature depolarization (principal)
CPT/HCPCS: 93005

== ENCOUNTER → 2022-11-02 15:12 | Outpatient (CLI) | payer OTHER, SELFPAY ==
--- NOTE | 2022-11-02 15:22 | CA_ITS ---
APPROVED REPORT EXAM: Comprehensive 2D, Doppler, and color-flow Echocardiogram Investigator Utility Bill Complaints: Mago Hui RDCS Ht: 5 ft 4 in Wt: 169lbs BSA: 1.82 BP: 120/78 mmHg Indications: PVC H/O ABLATION 2D Dimensions LVOT 1.82 cm (M/F) 1.5-2.5 M-Mode Dimensions RVDd 1.81 cm (0.9-2.6) LA Diam 3.46 cm (1.9-4.0) LVDd 4.18 cm (3.5-5.7) Ao Diam 2.86 cm (2.0-3.7) LVDs 2.91 cm (3.5-5.7) IVSd 0.90 cm (0.6-1.1) PWd 0.80 cm (0.6-1.1) EF (Teich) 58.20% FS 30.40% EDV (Teich) 77.70 mL ESV (Teich) 32.50 mL LV Diastology E Decel Time 207.00 (160-240 msec) E/A Ratio 1.2 MED E' 10.30 (< 7 cm/sec) E'/MED E' Ratio 6.53 (>14) LAT E' 13.30 (<10 cm/sec) E/LAT E' Ratio 5.06 (>14) Mitral Valve MV E Max Neal. 67.00 (40-130 cm/s) MV A Velocity 58.00 (40-130 cm/s) E/A Ratio 1.16 MV Decel. Time 207.00 (160-240 ms) MV PHT 61.00 ms Left Ventricle Left atrium is normal size, left ventricle is normal size, estimated ejection fraction of 55% with no regional wall motion abnormality, diastolic parameters are within normal range. Right Ventricle Right atrium and right ventricular normal size and contractility. Aortic Valve Aortic valve is grossly normal there is no aortic stenosis aortic insufficiency. Mitral Valve Mitral valve is grossly normal, there is trace mitral regurgitation. Tricuspid Valve Tricuspid grossly normal, there is trace tricuspid regurgitation. Pulmonic Valve Pulmonic valve is poorly visualized. Great Vessels Aortic root is normal size. Inferior vena cava is normal 70 normal inspiratory collapse. Pericardium No significant pericardial effusion noted. Conclusion 1. Normal left ventricular size Maddi ventricular systolic function, estimated ejection fraction of 55% with no regional wall motion abnormality, diastolic parameters are within normal range. 2. Trace mitral and tricuspid regurgitation. 3. No significant pericardial effusion noted. 4. Inferior vena cava is normal size with normal inspiratory collapse. Electronically signed by : Jose Carter MD 11/02/2022 16:45:44
== END ==
PROVIDERS: PCP Family Medicine
DX: I49.3 Ventricular premature depolarization (principal); I50.21 Acute systolic (congestive) heart failure
CPT/HCPCS: 93306

== ENCOUNTER → 2023-01-18 15:14 | Outpatient (CLI) | payer OTHER, SELFPAY ==
--- NOTE | 2023-01-18 15:14 | US_ITS ---
PROCEDURE INFORMATION: Exam: US Right Breast, Complete Exam date and time: 01/18/2023 3:27 PM Age: 48 years old Clinical indication: Continued short-term surveillance for probable cystic change TECHNIQUE: Imaging protocol: Complete ultrasound of all four quadrants of the right breast and the retroareolar regions, including ultrasound of the axilla when performed. COMPARISON: US BREAST RT COMPLETE 06/15/2022 3:08 PM FINDINGS: Breast: Sonographic images of the right breast including the retroareolar region, all 4 quadrants and the axilla do not demonstrate any solid masses. Few scattered subcentimeter cysts appears stable and benign. No architectural distortion or acoustical shadowing. No skin thickening or axillary adenopathy. IMPRESSION: No sonographic evidence of malignancy. Annual mammographic screening is recommended in May 2023 unless otherwise clinically indicated. ASSESSMENT: BI-RADS Category 2: Benign
== END ==
PROVIDERS: PCP Family Medicine; Visit Provider Nurse Practitioner Obstetrics & Gynecology
DX: R92.8 Other abnormal and inconclusive findings on diagnostic imaging of breast (principal)
CPT/HCPCS: 76641

== ENCOUNTER → 2023-02-07 09:13 | Outpatient (CLI) | payer OTHER, SELFPAY | PROVIDERS: PCP Family Medicine; Visit Provider Physician Assistant | DX: R00.2 Palpitations (principal); Z98.890 Other specified postprocedural states; Z86.79 Personal history of other diseases of the circulatory system | CPT/HCPCS: 93225 ==

== ENCOUNTER → 2023-08-09 12:25 | Outpatient (CLI) | payer OTHER, SELFPAY ==
--- NOTE | 2023-08-09 12:25 | MM_ITS ---
PROCEDURE INFORMATION: Exam: MG Bilateral Screening 3D Mammography Exam date and time: 08/09/2023 12:14 PM Age: 48 years old Clinical indication: Screening examination TECHNIQUE: Imaging protocol: Bilateral Screening tomosynthesis and 2D mammography including computer-aided detection (CAD) when performed. COMPARISON: 1. MG MM DIG SCREENING MAMM BI W/CAD 06/15/2022 2:46 PM 2. MG MM DIG MAMM DX UNILAT RT CAD 12/01/2021 2:25 PM FINDINGS: MAMMOGRAPHY: Breast composition: The breasts are heterogeneously dense, which may obscure small masses. Mass: None. Architectural distortion: None. Calcifications: No suspicious calcifications. Asymmetric density: None. Skin thickening: None. Axillary adenopathy: None. IMPRESSION: No mammographic evidence of malignancy. Annual screening is recommended unless otherwise clinically indicated. ASSESSMENT: BI-RADS Category 1: Negative
== END ==
PROVIDERS: PCP Family Medicine; Visit Provider Nurse Practitioner Obstetrics & Gynecology
DX: Z12.31 Encounter for screening mammogram for malignant neoplasm of breast (principal)
CPT/HCPCS: 77063; 77067

== ENCOUNTER 2024-08-19 13:06 | Outpatient (CLI) | payer OTHER, SELFPAY ==
--- NOTE | 2024-08-19 13:06 | MM_ITS ---
PROCEDURE INFORMATION: Exam: MG Bilateral Screening 3D Mammography Exam date and time: 08/19/2024 1:01 PM Age: 49 years old Clinical indication: Screening. Her maternal grandmother had breast cancer. TECHNIQUE: Imaging protocol: Bilateral Screening tomosynthesis and 2D mammography including computer-aided detection (CAD) when performed. COMPARISON: 1. MG MM DIG SCREENING MAMM BI W/CAD 08/09/2023 12:14 PM 2. MG MM DIG SCREENING MAMM BI W/CAD 06/15/2022 2:46 PM 3. MG MM DIG MAMM DX UNILAT RT CAD 12/01/2021 2:25 PM 4. MG MM DIG MAMM DX UNILAT RT CAD 05/24/2021 2:20 PM FINDINGS: MAMMOGRAPHY: Breast composition: The breasts are heterogeneously dense, which may obscure small masses. Mass: No suspicious mass. The Architectural distortion: None. Calcifications: No suspicious calcifications. Asymmetric density: None. Skin thickening: None. Axillary adenopathy: None. IMPRESSION: No mammographic evidence of malignancy. Annual screening is recommended unless otherwise clinically indicated. ASSESSMENT: BI-RADS Category 1: Negative.
== END 2024-08-19 23:59 | disposition home or self-care (01) ==
LOC: RAD 13:06
PROVIDERS: PCP Family Medicine; Visit Provider Nurse Practitioner Obstetrics & Gynecology
DX: Z12.31 Encounter for screening mammogram for malignant neoplasm of breast (principal)
CPT/HCPCS: 77063; 77067

== ENCOUNTER 2024-08-28 10:24 | Outpatient (CLI) | payer OTHER, SELFPAY ==
--- NOTE | 2024-08-28 10:25 | CT_ITS ---
FINAL REPORT CLINICAL HISTORY: left achilles tendinitis FINDINGS: CT LEFT ANKLE WITHOUT CONTRAST TECHNIQUE: Axial and reformatted sagittal and coronal images were obtained of the left ankle. This study was performed with techniques to keep radiation doses as low as reasonably achievable, (ALARA). Individualized dose reduction techniques using automated exposure control or adjustment of mA and/or kV according to the patient's size were employed. FINDINGS: There is no acute fracture or dislocation. The joint spaces preserved. There is enlargement of the distal Achilles tendon with adjacent stranding consistent with Achilles tendinitis and peritendinitis. There is a collection of fluid in the retrocalcaneal bursa consistent with retrocalcaneal bursitis. Small calcifications are seen in the distal Achilles tendon. IMPRESSION: Distal Achilles tendinitis and peritendinitis. Retrocalcaneal bursitis. Reviewed, Interpreted and Dictated by Coleman Rogers III, MD Transcribed by Angelique Torres Authenticated and [facility]
[2024-08-28] MEDS: SODIUM CHLORIDE 0.9% 10ML SYR (RAD ONLY) 10 ML IV (10:56)
[2024-08-28] MEDS: IOPAMIDOL-370 (76%);100ML BOTTLE 75 ML IV (10:56)
== END 2024-08-28 23:59 | disposition home or self-care (01) ==
LOC: RAD 10:25
PROVIDERS: PCP Family Medicine; Visit Provider Nurse Practitioner
DX: M76.62 Achilles tendinitis, left leg (principal)
CPT/HCPCS: 73701; Q9967

== ENCOUNTER 2024-10-08 07:45 | Outpatient (CLI) | payer OTHER, SELFPAY ==
[2024-10-08 08:03] LABS: Basophils % 0.7 % (0.1-2.0); Eosinophils # 0.2 K/mm3 (0.0-0.4); Hematocrit 41.5 % (37.0-47.0); Hemoglobin 13.9 g/dL (12.2-16.2); Lymphocytes # 1.4 K/mm3 (0.7-4.5); Lymphocytes % 23.5 % (10-50); Mean Corpuscular HGB Conc 33.5 g/dL (31.8-35.4); Mean Corpuscular Hemoglobin 29.4 pg (27.0-31.2); Mean Corpuscular Volume 87.9 fl (81-99); Mean Platelet Volume 10.3 fl (7.4-10.4); Monocytes # 0.5 K/mm3 (0.1-1.0); Monocytes % 8.4 % (1.7-9.3); Neutrophils # 3.7 K/mm3 (1.8-7.8); Neutrophils % 63.9 % (37.0-80.0); Platelet Count 291 K/mm3 (142-424); Red Blood Count 4.72 M/mm3 (4.20-5.40); Red Cell Distribution Width 12.8 % (11.5-17.5); White Blood Count 5.7 K/mm3 (4.8-10.8)
[2024-10-08 08:47] LABS: Alanine Aminotransferase 20 U/L (12-78); Albumin Level 4.5 g/dl (3.5-5.0); Albumin/Globulin Ratio 2.1 (1.1-1.8); Alkaline Phosphatase 97 U/L (38-126); Anion Gap 11.5 mEq/L (5-15); Aspartate Amino Transferase 32 U/L (14-36); Bilirubin,Total 0.6 mg/dl (0.2-1.3); Blood Urea Nitrogen 15 mg/dl (7-17); Calcium 9.6 mg/dl (8.4-10.2); Carbon Dioxide 28 mmol/L (22.0-30.0); Chloride 103 mmol/L (98-107); Chol/HDL Ratio 3.4 (1-3.5); Cholesterol 196 mg/dl (140-200); Estimated Glomerular Filt Rate 89 ml/min (>60); GFR (African American) 107 ML/MIN (>60); Globulin 2.1 g/dL (1.3-3.2); Glucose 85 mg/dl (74-100); HDL Cholesterol 57 mg/dl (40-60); Potassium 4.5 mmoL/L (3.5-5.1); Sodium 138 mmol/L (136-145); Total Protein,Serum 6.6 g/dl (6.3-8.2); Triglycerides 88 mg/dl (30-150); VLDL Cholesterol 18 mg/dL (0-40)
[2024-10-08 09:03] LABS: 25-OH Vitamin D, Total 72.4 ng/mL (30-100)
[2024-10-08 09:25] LABS: HIV Combo NEGATIVE (Negative)
[2024-10-08 09:33] LABS: Hepatitis C Ab Qual. W/ RFX NEGATIVE (Negative)
== END 2024-10-08 23:59 | disposition home or self-care (01) ==
LOC: LAB 07:46
PROVIDERS: PCP Family Medicine; Visit Provider Nurse Practitioner Obstetrics & Gynecology
DX: R53.83 Other fatigue (principal); Z01.419 Encounter for gynecological examination (general) (routine) without abnormal findings
CPT/HCPCS: 36415; 80053; 80061; 82306; 85025; 86803; 87389

== ENCOUNTER 2025-02-23 12:43 | Outpatient (CLI) | payer OTHER, SELFPAY ==
--- NOTE | 2025-02-23 12:46 | XR_ITS ---
FINAL REPORT CLINICAL HISTORY: PAIN LT-THUMB NKI FINDINGS: LEFT HAND Three views demonstrate no acute fracture or dislocation. The visualized joint spaces are normally aligned. There is degenerative joint disease, most pronounced at the first CMC joint. The soft tissues are unremarkable. IMPRESSION: No acute process. Reviewed, Interpreted and Dictated by Kylah Sawant MD Transcribed by Paige Lang Authenticated and [facility]
== END 2025-02-23 23:59 | disposition home or self-care (01) ==
LOC: RAD 12:43
PROVIDERS: PCP Family Medicine; Visit Provider Family Medicine
DX: M18.12 Unilateral primary osteoarthritis of first carpometacarpal joint, left hand (principal)
CPT/HCPCS: 73130

== ENCOUNTER 2025-04-20 11:58 | Outpatient (CLI) | payer OTHER, SELFPAY ==
--- OUTSIDE RECORDS SUMMARY | 2025-04-20 12:01 | XMS_ITS | Clinical Summary ---
Author Organization [facility] Address [address] [place] [address] Care Team Providers Care Vice Chair Name Role Phone Murali Scott MD Primary Care Provider [phone] Allergies Active Allergy Reactions Criticality Noted Date Comments Topiramate Other - please docum ent in the comment field Low 05/08/2022 Eyes blurring Medications No known medications Active Problems Problem Noted Date Diagnosed Date PVC (premature ventricular contraction) 05/08/20 22 Immunizations Immunization Administration Dates Next Due Hep B, adult 02/06/2008,09/04/2007,07/29/2007 Moderna COVID-19 Vaccine (Re d Cap) 12+ years 07/28/2021,10/26/2020,09/26/2020 Family History Medical History Relation Name Comments Hypertension Father Diabetes type I Mother Heart attack Mother Relation Name Status Comments Father Alive Mother Social History Tobacco Use Types Packs/Day Years Used Date Smoking Tobacco: Never Smokeless Tobacco: Never Tobacco Cessation:Counseling Given: Not Answered Alcohol Use Standard Drinks/Week Comments Never 0 (1 standard drink = 0.6 oz pur e alcohol) PHQ-2 Answer Date Recorded Patient Health Questionnaire-2 Score 0 02/13/2023 PHQ-2A Answer Date Recorded Patient Health Questionnaire-2 Score 0 02/13/2023 Comments Unknown Sex and Gender Information Value Date Recorded Sex Assigned at Not on file Legal Sex Female 8:41 PM EDT Gender Identity Not on file Sexual Orientation Not on file Last Filed Vital Signs Vital Sign Reading Time Taken Comments Blood Pressure 122/82 04/02/2023 8:02 AM EDT Pulse 59 04/02/2023 8:02 AM EDT Temperature 36.4 C (97.6 F) 08/20/2022 11:07 AM EST Respiratory Rate 12 08/20/2022 2:00 PM EST Oxygen Saturation 97% 04/02/2023 8:02 AM EDT Inhaled Oxygen Concentration - - Weight 75.5 kg (166 lb 7.2 oz) 04/02/2023 8:02 A M EDT Height 160 cm (5' 3 ) 04/02/2023 8:02 AM EDT Body Mass Index 29.48 04/02/2023 8:02 AM EDT Plan of Treatment Health Maintenance Due Date Last Done Comments [facility]-HIV Screening 1975 [facility]-Hepatitis C Screening 1975 [facility]-/Child/Adol SDOH Screenings 1975 [facility]- SDOH Screenings 01/08/1992 [facility]-Adult SDOH Screenings 01/08/1992 [facility]-DTaP,Tdap,and Td Vaccines (1 - Tdap) 1993 [facility]-Pap Smear 1995 [facility]-Cervical Cancer Screening 01/08/2004 [facility]-HPV/Cotest 01/08/2004 CT Colonography 2019 Colonoscopy 2019 FIT-DNA 2019 FIT 2019 FOBT 2019 Sigmoidoscopy 2019 [facility]-Colorectal Cancer Screening 2019 [facility]-Breast Cancer Screening 01/08/2024 [facility]-Pneumococcal Vaccine: 50+ Years (1 of 1 - PCV) 01/08/2024 [facility]-Zoster Vaccines (1 of 2) 01/08/2024 [facility]-Depression Screening 02/14/2024 02/13/2023 [id number] Vaccine (2023- season) 2024 07/28/2021, 10/26/2020, 09/26/2020 [facility]-Influenza Vaccine (#1) 2025 [facility]-Hepatitis B Vaccines Completed 008, 09/04/2007, 07/29/2007 [facility]-Obesity Intervention Completed 023, 02/13/2023, 10/23/2022, Additional history exists HPV Vaccines Aged Out No longer eligi ble based on patient's age to complete this topic [facility]-HIB Vaccines Aged Out No longer e ligible based on patient's age to complete this topic [facility]-Hepatitis A Vaccines Aged Out No longer eligible based on patient's age to complete this topic [facility]-IPV Vaccines Aged Out No longer e ligible based on patient's age to complete this topic [facility]-Rotavirus Vaccines Aged Out No lo nger eligible based on patient's age to complete this topic Insurance [facility] Advance Directives * Full Code (Latest Code Status on File) Date Activated Date Inactivated Comments 08/20/2022 10:48 AM 08/20/2022 5:34 PM Question Answer Comments Patient has decision-making capacity? Yes Care Teams Vice Chair Relationship Specialty Start Date End Date Murali Scott MD [facility] [address] [place] [address] PCP - General 08/14/22
--- OUTSIDE RECORDS SUMMARY | 2025-04-20 12:01 | XMS_ITS | Clinical Summary ---
[facility] Address [address] [place] [address] Care Team Providers Care Zoology Teacher Name Role Phone Murali Scott MD Primary Care Provider + [phone] Social History Tobacco Use Types Packs/Day Years Used Date Smoking Tobacco: Never Assessed Abuse Screen Answer Date Recorded Unsafe at Home or Work/School Not on file Feels Threatened by Someone? Not on file 05/2023 Does Anyone Keep You from Co ntacting Others or Doint Things Outside the Home? Not on file 07/01/2023 Physical Sign of Abuse Present Not on file 1 Housing Stability Answer Date Recorded Current Living Arrangements Not on file 05/2023 Potentially Unsafe Housing Conditions Not on robyn e 07/01/2023 Family and Community Support Answer Vito e Recorded Help with Day-to-Day Activities Not on file 07/01/2023 Lonely or Isolated Not on file 07/01/2023 Employment Answer Date Recorded Do you want help finding or keeping work or a walter b? Not on file 07/01/2023 Disabilities Answer Date Recorded Concentrating, Remembering, or Making Decisions Difficulty Not on file 07/01/2023 Doing Errands Independently Difficulty Not on fi le 07/01/2023 Education Answer Date Recorded Help with school or training? Not on file Preferred Language Not on file 07/01/2023 Comments Unknown Sex and Gender Information Value Date Recorded Sex Assigned at Not on file Legal Sex Female 11:54 AM EDT Gender Identity Not on file Sexual Orientation Not on file Plan of Treatment Health Maintenance Due Date Last Done Comments Annual Gynecologic Pelvic and Breast Exam 1975 TDAP/TD VACCINES (1 - Tdap) 1993 MAMMOGRAM 2014 COLOGUARD 2019 COLON CANCER SCREENING 5 YEAR SIGMOIDOSCOPY 2019 COLONOSCOPY 2019 COL[address]ECTAL CANCER SCREENING 2019 [address] COLONOGRAPHY 2019 FECAL OCCULT BLOOD TEST 2019 FIT Testing (1 year) 2019 ANNUAL PHYSICAL 06/26/2022 HEPATITIS C SCREENING 06/26/2022 Pneumococcal Vaccine 50+ (1 of 1 - PCV) 01/08/2024 ZOSTER VACCINE (1 of 2) 01/08/2024 COVID-19 Vaccine (1 - 2023- season) 2024 INFLUENZA VACCINE 06/23/2025 Insurance [employer] Care Teams Zoology Teacher Relationship Specialty Start Date End Date Murali Scott MD [facility] [facility] [address] [place] [id number] PCP - General Family Medicine 04/30/22
== END 2025-04-20 23:59 | disposition home or self-care (01) ==
LOC: RT 11:59
PROVIDERS: PCP Family Medicine; Visit Provider Family Medicine
DX: I49.1 Atrial premature depolarization (principal); I47.19 Other supraventricular tachycardia; I49.3 Ventricular premature depolarization; Z98.890 Other specified postprocedural states
CPT/HCPCS: 93270

== ENCOUNTER 2025-09-02 07:56 | Outpatient (CLI) | payer OTHER, SELFPAY ==
--- OUTSIDE RECORDS SUMMARY | 2025-02-22 11:45 | XMS_ITS ---
Author Organization [place] Address [address] [facility] [address] [place] [id number] Care Team Providers Care Grain Elevator Superintendent Name Role Phone Sonia Murali Primary Care Provider [phone] Donna Milian Unavailable [phone] Allergies Allergen (clinical drug ingredient) Drug/Non Drug Allergy documented on EMR Reaction Allergy Type Onset Date Status topiramate Topamax Glaucoma Drug Allergy Active Results Component Value Reference Range Notes X ray : Thumb, left Reviewed date:03/02/2025 09:20:56 AM Interpretation:Negative Performing Lab: Notes/Report: Negative REASON FOR VISIT left thumb Medications Medication SIG (Take, Route, Frequency, Duration) Notes Start Date End Date Status Metoprolol Succinate ER 25 MG 1 tablet Orally Once a day A ctive Vitamin D3 1.25 MG (09554 UT) 1 cap(s) orally once a week Active Vital Signs Weight 182.2 lbs 02/22/2025 Blood pressure systolic 110 mm Hg 02/23/20 25 Blood pressure diastolic 70 mm Hg 025 Heart Rate 79 /min 02/22/2025 Height 66 in 02/22/2025 BMI 29.4 kg/m2 02/22/2025 Encounters Encounter Location Date Provider Diagnosis [place] [address] [place] [address] [place] [id number] 02/22/2025 Murali Scott Pain of left thumb M79.645 Assessments Encounter Date Diagnosis (ICD Code) Assessment Notes Treatment Notes Treatment Clinical Notes Section Notes 02/22/2025 Pain of left thumb (ICD-10 - M79.645) Home exercise program provided to patient, thumb spica splint recommended Plan Of Treatment Treatment Notes Assessment Notes Pain of left thumb Home exercise progra m provided to patient, thumb spica splint recommended Next Appt Details Follow Up: via phone to repo rt progress, Reason: Progress Notes * DELTA RAYINDOB:[birth year] (50 yo F)Acc No.[id number]:02/22/2025 Progress Notes Patient: CYRUS CALLOWAY Provider: Kina Scott M.D. :1975 A ge:50 Y S ex:Female Date:02/22/2025 Address:[address] [place] [address], [id number] Subjective: * Chief Complaints: * 1 . Left thumb. * HPI: W rist/Hand: 50 year old female presents with c/o pain P t complains of off and on pain in lt thumb for about a year. Pt states that recently the pain has become more constant. No known injury or cause. * ROS: D ERMATOLOGY: no R nolan. n o H caity. G ASTROENTEROLOGY: no N ausea. n o V omiting. U ROLOGY: no D ifficulty urinating. n o B lood in urine. 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 * Surgical History: C holecystectomy , Tonsillectomy , Adenoidectomy 07/01/2007, Colonoscopy 08/2010, RT Foot Tendon Repair 11/16/2013, Endometrial Ablation 07/2022. * Hospitalization/Major Diagno stic Procedure: P assed Out- [facility] 09/2008, Reaction to Topamax- [facility] 10/17/2008, Virus 08/24/2009, Acute Gastroenteritis 08/25-12/2008, Syncope- [facility] 01/08/2020. * Family History: F ather: alive. M other: , coronary artery disease, stroke. 1 daughter(s) - healthy. . * Social History: C URRENT TOBACCO USE S moking Status: Patient does NOT smoke. C affeine: yes, frequency:. Home smoke detector use: yes. Marital Status: . Past smoking status: no, Smoking status: Does not smoke. Alcohol: Yes, Type: , Frequency:Seldom ,Years: , Determination:. * Medications: T aking Metoprolol Succinate ER 25 MG Tablet Extended Release 24 Hour 1 tablet Orally Once a day , Taking Vitamin D3 1.25 MG (27115 UT) Capsule 1 cap(s) orally once a week , Discontinued Etodolac 400 MG Tablet 1 tab(s) orally 2 times a day , Medication List reviewed and reconciled with the patient * Allergies: T opamax: Glaucoma - Side Effects. Objective: * Vitals: W t: 182.2, Temp: 97.9, BP: 110/70, HR: 79, Nurse: gabino, Ht: 66, BMI:29.4. * Examination: G eneral Examination: General Appearance: N AD. W rist / Hand: Wrist/Hand: l eft. I nspection: n o swelling, redness or ecchymosis. R jorge of motion: n ormal flexion and extension, normal ulnar and radial deviation, pain with Coreen's test. P alpation: t enderness on first MCP joint. S trength: n ormal strength of flexors and extensors, normal plant associate. Assessment: * Assessment: 1. P ain of left thumb - M79.645 (Primary) Plan: * Treatment: Notes: Home exercise program provided to patient, thumb spica splint recommended?? * Follow Up: v ia phone to report progress * Images: Billing Information: * Visit Code: 79160 Office Visit, Est Pt., Level 3. * Procedure Codes: * Electronic signature of Alyx Scott MD on 09/02/2025 at 08:02 AM EST Sign off status: Pending * Provider: Kina Scott M.D. Date: 0 02/22/2025 Generated for Tamara meza/Fabienne/Franko on: 1 11/03/2024 08:02 AM EST History and Physical Notes * HPI (History of Present Illness) Category Sub-Category Detail Notes Category Not es Wrist/Hand pain Pt complains of off and on pain in lt thumb for about a year. Pt states that recently the pain has become more constant. No known injury or cause Examination Category Sub-Category Detail Notes Category Not es General Examination General Appearance: NAD Wrist / Hand Inspection: no swelling, red ness or ecchymosis Wrist/Hand: left Range of motion: normal flexion and e xtension, normal ulnar and radial deviation, pain with Coreen's test Palpation: tenderness on first MCP joint Strength: normal strength of f lexors and extensors, normal plant associate
--- OUTSIDE RECORDS SUMMARY | 2025-04-19 11:30 | XMS_ITS ---
Author Organization [facility] Address [facility] [address] [place] [id number] Care Team Providers Care Automotive Wholesale Parts Advisor Name Role Phone Murali Scott Primary Care Provider Donna Milian Unavailable [phone] Allergies Allergen (clinical drug ingredient) Drug/Non Drug Allergy documented on EMR Reaction Allergy Type Onset Date Status topiramate Topamax Glaucoma Drug Allergy Active Results Component Value Reference Range Notes Cardiac Event Monitor - 14 d ay Reviewed date:05/14/2025 10:26:37 AM Interpretation: Performing Lab: Notes/Report: REASON FOR VISIT shortness of breath, cologuard Medications Medication SIG (Take, Route, Frequency, Duration) Notes Start Date End Date Status Vitamin D3 1.25 MG (00708 UT) 1 cap(s) orally once a week Active Metoprolol Succinate ER 25 MG 1 tablet Orally Once a day A ctive Problems Problem Type SNOMED Code ICD Code Onset Dates Problem Status W/U Status Risk Notes Problem Ventricular premature complex (disorder) (021235045) PVC (premature ventricular contraction) (I49.3) Active confirmed Vital Signs Weight 187 lbs 04/19/2025 Blood pressure systolic 110 mm Hg 04/19/20 25 Blood pressure diastolic 70 mm Hg 025 Heart Rate 79 /min 04/19/2025 Height 66 in 04/19/2025 BMI 30.18 kg/m2 04/19/2025 Encounters Encounter Location Date Provider Diagnosis [facility] [address] [id number] 04/19/2025 Murali Scott Palpitations R00.2 ; PVC (premature ventricular contraction) I49.3 and History of radiofrequency ablation procedure for cardiac arrhythmia Z98.890 Assessments Encounter Date Diagnosis (ICD Code) Assessment Notes Treatment Notes Treatment Clinical Notes Section Notes 04/19/2025 Palpitations (ICD-10 - R00.2) 04/19/2025 PVC (premature ventricular contraction) (ICD-10 - I49.3) 04/19/2025 History of radiofrequency ablation procedure for cardiac arrhythmia (ICD-10 - Z98.890) Plan Of Treatment Next Appt Details Follow Up: via phone to repo rt test results, Reason: Progress Notes * DELTA RAYINDOB:[birth year] (50 yo F)Acc No.[id number]:04/19/2025 Progress Notes Patient: CYRUS CALLOWAY Provider: Kina Scott M.D. :1975 A ge:50 Y S ex:Female Date:04/19/2025 Address:[address] [place] [address], [id number] Subjective: * Chief Complaints: * 1 . Shortness of breath, cologuard. * HPI: C ardiology: 50 year old female presents with c/o Short of Breath P t complains of shortness of breath for about a month. Pt states she feels like she needs to cough to catch her breath. Pt states she has this issue before and ended up having to get a heart ablation done in 2021. * ROS: D ERMATOLOGY: no R nolan. n o H caity. G ASTROENTEROLOGY: no N ausea. n o V omiting. U ROLOGY: no D ifficulty urinating. n o B lood in urine. 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 * Surgical History: C holecystectomy , Tonsillectomy , Adenoidectomy 07/01/2007, Colonoscopy 08/2010, RT Foot Tendon Repair 11/16/2013, Cardiac Ablation at 07/2022. * Hospitalization/Major Diagno stic Procedure: P assed Out- [facility] ER 09/2008, Reaction to Topamax- [facility] ER 10/17/2008, Virus 08/24/2009, Acute Gastroenteritis 08/25-12/2008, Syncope- [facility] 01/08/2020. * Family History: F ather: alive. M other: , coronary artery disease, stroke. 1 daughter(s) - healthy. . * Social History: C URRENT TOBACCO USE: No . C affeine: yes, frequency:. Home smoke detector use: yes. Marital Status: . Past smoking status: no, Smoking status: Does not smoke. Alcohol: Yes, Type: , Frequency:Seldom ,Years: , Determination:. * Medications: T aking Metoprolol Succinate ER 25 MG Tablet Extended Release 24 Hour 1 tablet Orally Once a day , Taking Vitamin D3 1.25 MG (47337 UT) Capsule 1 cap(s) orally once a week , Medication List reviewed and reconciled with the patient * Allergies: T opamax: Glaucoma - Side Effects. Objective: * Vitals: W t: 187, Temp: 97.7, BP: 110/70, HR: 79, O2 Sat: 98% on RA, Nurse: gabino, Ht: 66, BMI:30.18. * Examination: C ardiology: General Appearance: p leasant, NAD. H EENT: u nremarkable. H eart sounds: R RR, normal S1, S2. L ungs: c lear, no rales or wheezes.?Extremities: n o leg edema. Assessment: * Assessment: 1. P alpitations - R00.2 (Primary) 2 . P VC (premature ventricular contraction) - I49.3 3 . H istory of radiofrequency ablation procedure for cardiac arrhythmia - Z98.890 Plan: * Treatment: 2.?PVC (premature ventricular contraction)?Imaging: Cardiac Event Monitor - 14 day (Performed Date - 05/04/2025)* Angely Denis 05/14/2025 10:2 6:32 AM EDT > See phone encounter 3.?History of radiofrequency ablation procedure for cardiac arrhythmia?Imaging: Cardiac Event Monitor - 14 day (Performed Date - 05/04/2025)* Angely Denis 05/14/2025 10:2 6:32 AM EDT > See phone encounter * Follow Up: v ia phone to report test results * Images: Billing Information: * Visit Code: 76307 Office Visit, Est Pt., Level 3. * Procedure Codes: * Electronic signature of Alyx Scott MD on 09/02/2025 at 08:01 AM EST Sign off status: Pending * Provider: Kina Scott M.D. Date: 0 04/19/2025 Generated for Tamara meza/Fabienne/eTransmitting on: 1 11/03/2024 08:01 AM EST History and Physical Notes * HPI (History of Present Illness) Category Sub-Category Detail Notes Category Not es Cardiology Short of Breath Pt complains of shortness of breath for about a month. Pt states she feels like she needs to cough to catch her breath. Pt states she has this issue before and ended up having to get a heart ablation done in 2021 Examination Category Sub-Category Detail Notes Category Not es Cardiology Lungs: clear, no rales or wheezes HEENT: unremarkable Heart sounds: RRR, normal S1, S2 Extremities: no leg edema General Appearance: pleasant, NAD
--- NOTE | 2025-09-02 07:59 | MM_ITS ---
PROCEDURE INFORMATION: Exam: MG Bilateral Screening 3D Mammography Exam date and time: 09/02/2025 8:06 AM Age: 50 years old Clinical indication: Screening examination TECHNIQUE: Imaging protocol: Bilateral Screening tomosynthesis and 2D mammography including computer-aided detection (CAD) when performed. COMPARISON: 1. MG MM DIG SCREENING MAMM BI W/CAD 08/19/2024 1:01 PM 2. MG MM DIG SCREENING MAMM BI W/CAD 08/09/2023 12:14 PM FINDINGS: MAMMOGRAPHY: Breast composition: There are scattered areas of fibroglandular density. Mass: None. Architectural distortion: None. Calcifications: No suspicious calcifications. Asymmetric density: None. Skin thickening: None. Axillary adenopathy: None. IMPRESSION: No mammographic evidence of malignancy. Annual screening is recommended unless otherwise clinically indicated. ASSESSMENT: BI-RADS Category 1: Negative.
--- OUTSIDE RECORDS SUMMARY | 2025-09-02 08:01 | XMS_ITS | Clinical Summary ---
Author Organization [facility] Address [address] [place] [address] Care Team Providers Care Warp Hanger Name Role Phone Murali Scott MD Primary Care Provider [phone] Allergies Active Allergy Reactions Criticality Noted Date [...] [facility]-HIV Screening 1975 [facility]-Hepatitis C Screening 1975 [facility]-Infant/Child/Adol SDOH Screenings 1974 [facility]- SDOH Screenings 01/08/1992 [...] of 2) 01/08/2024 [facility]-Depression Screening 02/14/2024 02/13/2023 [id number] Vaccine ( season) 2025 07/28/2021, 10/26/2020, 09/26/2020 [facility]-Influenza Vaccine (#1) 2025 [...] patient's age to complete this topic Insurance [facility] Advance Directives * Full Code (Latest Code Status on File) Date Activated Date Inactivated Comments 08/20/2022 10:48 AM 08/20/2022 5:34 PM Question Answer Comments Patient has decision-making capacity? Yes Care Teams Warp Hanger Relationship Specialty Start Date End Date Murali Scott MD [address] [facility] [address] [place] [address] PCP - General 08/14/22
--- OUTSIDE RECORDS SUMMARY | 2025-09-02 08:03 | XMS_ITS | Patient Health Record ---
[facility] Address [address] [facility] [address] [place] [id number] Care Team Providers Care Dance Hall Hostess Name Role Phone Murali Scott Primary Care Provider [phone] Donna Milian Unavailable [phone] Allergies Allergen (clinical drug ingredient) Drug/Non Drug Allergy documented on EMR Reaction Allergy Type Onset Date Status topiramate Topamax Glaucoma Drug Allergy Active Results Component Value Reference Range Notes X ray : Thumb, left Reviewed date:03/02/2025 09:20:56 AM Interpretation:Negative Performing Lab: Notes/Report: Negative Cardiac Event Monitor - 14 d ay Reviewed date:05/14/2025 10:26:37 AM Interpretation: Performing Lab: Notes/Report: Kaushik Reviewed date:04/16/2025 01:19:58 PM Interpretation:Negative, F/U in 3 Years Performing Lab: Notes/Report: Negative, F/U in 3 Years Medications Medication SIG (Take, Route, Frequency, Duration) Notes Start Date End Date Status Vitamin D3 1.25 MG (82144 UT) 1 cap(s) orally once a week Active Metoprolol Succinate ER 25 MG 1 tablet Orally Once a day A ctive Immunizations Vaccine Route Administration Date Status Comme nts COVID 19 Moderna Unknown 10/26/2020 Administered COVID 19 Moderna Unknown 07/28/2021 Administered Hepatitis A (adult) IM Intramuscular 09/01/2018 Administer ed Hepatitis A (adult) IM Intramuscular 03/04/2019 Administer ed Hepatitis B (20 and more) IM Intramuscular 12/24/2014 Admi nistered Hepatitis B (20 and more) IM Intramuscular 07/22/2014 Admi nistered Hepatitis B (20 and more) IM Intramuscular 06/22/2014 Admi nistered Problems Problem Type SNOMED Code ICD Code Onset Dates Problem Status W/U Status Risk Notes Problem Mixed anxiety and depressive disorder (991159061) Depression with anxiety (300.4) Active confirmed Problem Vitamin D deficiency (64230229) Vitamin D deficiency (E55.9) Active confirmed Problem Ventricular premature complex (disorder) (734171723) PVC (premature ventricular contraction) (I49.3) Active confirmed Problem Obesity (279002094) Non morbid obesity (E66.9) Active confirmed Vital Signs Heart Rate 79 /min 04/19/2025 Blood pressure diastolic 70 mm Hg 04/19/2025 Height 66 in 04/19/2025 Blood pressure systolic 110 mm Hg 04/19/2025 Weight 187 lbs 04/19/2025 BMI 30.18 kg/m2 04/19/2025 Encounters Encounter Location Date Provider Diagnosis [facility] [address] [facility] [address] [place] [id number] 02/22/2025 Murali Homer Pain of left thumb M79.645 [facility] [address] [place] [id number] 04/19/2025 Murali Homer Palpitations R00.2 ; PVC (premature ventricular contraction) I49.3 and History of radiofrequency ablation procedure for cardiac arrhythmia Z98.890 [facility] [address] [place] [id number] 03/08/2025 Murali Homer Screening for breast cancer Z12.39 and Screening for colon cancer Z12.11 [facility] [facility] [address] [facility] [address] [place] [id number] 05/14/2025 Murali Homer Assessments Encounter Date Diagnosis (ICD Code) Assessment Notes Treatment Notes Treatment Clinical Notes Section Notes 02/22/2025 Pain of left thumb (ICD-10 - M79.645) Home exercise program provided to patient, thumb spica splint recommended 03/08/2025 Screening for breast cancer (ICD-10 - Z12.39) 03/08/2025 Screening for colon cancer (ICD-10 - Z12.11) 04/19/2025 Palpitations (ICD-10 - R00.2) 04/19/2025 PVC (premature ventricular contraction) (ICD-10 - I49.3) 04/19/2025 History of radiofrequency ablation procedure for cardiac arrhythmia (ICD-10 - Z98.890) Plan Of Treatment Pending Test Test Name Order Date Mammogram 03/08/2025 Insurance Providers Payer Name Payer Address Payer Phone Subscriber Number Group Number Insured Name Patient Relationship to Insured Coverage Start Date Coverage End Date [facility] [address] [address] [place] [phone] [id number] CYRUS RAY Self - patient is the insured Medications Administered Medication Instructions Date of Administration Dosage Notes Dexamethasone 12/04/2016 1 mL Bicillin LA 1,200,000 05/20/2007 2 mL Medical (General) History Medical History History ICD Code Type 1 Arnold-Chiari Malformation RT Peroneus Longus Tendon Reupture, 2013 DIRECTOR PART - Dr. Strauss PVCs Surgical History Surgery Date(Month/Year) Cholecystectomy Tonsillectomy Adenoidectomy 07/01/2007 Colonoscopy 08/2010 RT Foot Tendon Repair 11/16/2013 Cardiac Ablation at 07/2022 Hospitalization History Reason Date(Month/Year) Syncope- [facility] 01/08/2020 Acute Gastroenteritis 08/25-12/2008 Virus 08/24/2009 Reaction to Topamax- [facility] 10/17/2008 Passed Out- [facility] 09/2008
== END 2025-09-02 23:59 | disposition home or self-care (01) ==
LOC: RAD 07:57
PROVIDERS: PCP Family Medicine; Visit Provider Family Medicine
DX: Z12.31 Encounter for screening mammogram for malignant neoplasm of breast (principal); R92.323 Mammographic fibroglandular density, bilateral breasts
CPT/HCPCS: 77063; 77067